=== PATIENT | male | born 1960 | race Caucasian/White ===

== ENCOUNTER 2017-07-25 12:01 | Observation (INO) ==
[2017-07-25 12:55] LABS: Basophils # 0.2 10*3/uL (0.0-0.2); Basophils % 1.3 % (0.0-0.8); Eosinophils # 0.2 10*3/uL (0.0-0.87); Eosinophils % 1.9 % (0.00-10.9); Hematocrit 44.7 VOL% (42.0-52.0); Hemoglobin 15.5 GM/DL (14.0-18.0); Immature Granulocytes % 0.9 %; Immature Granulocytes Absolute 0.11 #; Lymphocytes # 3.6 10*3/uL (1.4-4.0); Lymphocytes % 29.5 % (21.2-54.2); Mean Corpuscular HGB Conc 34.7 GM/DL (32-36); Mean Corpuscular Hemoglobin 30 PG (27-34); Mean Corpuscular Volume 86.3 FL (87-102); Mean Platelet Volume 10.6 FL (9.6-12.0); Monocytes # 0.9 10*3/uL (0.11-0.8); Monocytes % 7.3 % (1.7-12.7); Neutrophils # 7.3 10*3/uL (1.4-7.4); Neutrophils % 59.1 % (38.7-73.9); Platelet Count 278 T/CUMM (130-400); Red Blood Count 5.18 MC/CUMM (3.8-5.5); Red Cell Distribution Width 13.1 % (9.3-17.3); White Blood Count 12.3 T/CUMM (4-12)
[2017-07-25 13:06] LABS: PT Patient Result 10.9 SECS; Partial Thromboplastin Time 27.3 SECS (0-40)
--- NOTE | 2017-07-25 13:09 | Emergency Department Note ---
I, Mala Garcia, am scribing for, and in the presence of, Rubi Gupta DO 12:40. I, Rubi Gupta DO, personally performed the services described in this documentation, ascribed by Mala Garcia in my presence, and it is both accurate and complete . Arrival - Arrival Chief Complaint: Chest Pain Stated Complaint: chest pain,stint put in less than 1yr ago ED Nursing Triage Note: C/O Having chest pain x 1 week., states he is having sharp pains., denies the pain radiating to the neck or the arm., states nothing he notices has helped or made things worse., states he has nitroglycerin but does not take it , states he called office and was told to come to the ED., EKG obtained at time of triage Mode of Arrival: Ambulatory Limitations: No Limitations Source: Patient - History of Present Illness HPI Narrative: Pt is a 57 y/o male who came to ED with c/o chest pain, intermittently for week now. Pt states he has had a heart attack in the 90s with stent and had stent reoccluded 8-[address] Marroquin. Pt notes he currently does not have any chest pains in ED, but does have mild left sided neck tightness. He called Dr. De La Cruz when sxs started today and was told to come to ED. He notes when sxs first started he could sit very still and pain would subside on its own. Pt sees Dr. Garcia and has appointment this afternoon with eye appointment in [place], tomorrow. He reports taking daily medications and has taken his baby aspirin already. NIDDM, HTN and former smoker. Onset (ago): week(s) Consistency: constant Severity: mild, moderate Severity scale (1-10): 4 Quality: other Allergies/Adverse Reactions: Allergies Allergy/AdvReac Type Severity Reaction Status Date / Time No Known Allergies Allergy Verified 07/25/17 12:06 Home Medications: Home Medications Medication Instructions Recorded Confirmed Type Albuterol Sulfate [Ventolin HFA] 2 puff INH Q6H PRN 09/05/16 07/25/17 History Aspirin [Ecotrin] 81 mg PO QAM 09/05/16 07/25/17 History Atorvastatin [Lipitor] 20 mg PO BEDTIME 09/05/16 07/25/17 History Lisinopril/Hydrochlorothiazide 1 each PO QAM 09/05/16 07/25/17 History [Lisinopril-Hctz 20-25 mg Tab] Metformin HCl 1,000 mg PO BID 09/05/16 07/25/17 History Carvedilol [Coreg] 6.25 mg PO BID #60 tablet 09/06/16 07/25/17 Rx Nitroglycerin Sl Tab [Nitrostat] 0.4 mg SL Q5M PRN #30 tablet 09/06/16 07/25/17 Rx Clopidogrel [Plavix] 75 mg PO QAM 07/25/17 07/25/17 History Ipratropium Neb [Atrovent Neb] 500 mcg RESP TX RT Q6H PRN 07/25/17 07/25/17 History Mometasone/Formoterol 200-5 2 puff INH BID 07/25/17 07/25/17 History [Dulera 200-5] Montelukast Tab [Singulair Tab] 10 mg PO QAM 07/25/17 07/25/17 History Review of System - Review of System 12 point system: reviewed and no additional remarkable complaints except as stated - Review of System Constitutional: Absent: chills, diaphoresis, fever Respiratory: Absent: respiratory distress Cardiovascular: Present: chest pain. Absent: syncope Gastrointestinal: Absent: abdominal pain, nausea, vomiting Musculoskeletal: Present: neck pain (left side). Absent: arm pain Skin: Absent: rash Neurological: Absent: headache Psychiatric: Absent: anxiety Medical,Surgical,& Family Hx - Medical History Cardio: History of: Hypertension, [place] Neurology: No history of: Seizures Endocrine: History of: Diabetes Mellitus (NIDDM) Genitourinary: History of: Kidney Stones Musculoskeletal: History of: Back/Neck Problems - Surgical History Cardiac Surgeries: Patient Denies: Cardiac Catheterization Orthopedic Surgeries: Surgical HX of;: Orthopedic Surgery (back surgery x 2, carpal tunnel bilat, elbow surgery) - Family History Family History: Reports;: Family Cancer (brother), Family Diabetes (uncle), Family Heart Disease (father, brother x 3,), Family Hypertension (everybody) Denies;: Family Anesthesia Reaction, Family Psychiatric Problems, Family Stroke - Social History Smoking Status: Former smoker Frequency of Alcohol Use: None Type of Drug Use: None Marital Status: Single Lives With:: Alone Functional capacity: independent ambulation Exam Vital Signs: Vital Signs Temperature 98.1 F 07/25/17 12:02 Pulse Rate 85 07/25/17 13:45 Respiratory Rate 18 07/25/17 13:45 Blood Pressure 109/85 07/25/17 13:45 O2 Sat by Pulse Oximetry 97 07/25/17 13:45 - General General appearance: alert, in no apparent distress, obese (mildly), other ( stoic in appearance) - Head Head exam: Present: atraumatic, normocephalic - Eye Eye exam: Present: PERRL, EOMI - ENT ENT exam: Present: mucous membranes moist. Absent: mucous membranes dry - Neck Neck exam: Present: full ROM - Chest Chest inspection: Present: symmetric chest wall rise - Respiratory Respiratory exam: Present: normal lung sounds bilaterally. Absent: respiratory distress - Cardiovascular Cardiovascular exam: Present: regular rate, normal rhythm, normal heart sounds - Abdominal Exam Abdominal exam: Present: soft, distention (mildly distented). Absent: tenderness - Extremities Exam Extremities exam: Present: full ROM. Absent: pedal edema - Neurological Exam Neurological exam: Present: alert, oriented X3, CN II-XII intact - Psychiatric Psychiatric exam: Present: normal affect, normal mood - Skin Skin exam: Present: warm, dry Course Course Narrative: pt is stable at this time .was accepted by Dr Reyes. Results - Labs CBC & BMP: 07/25/17 12:34 07/25/17 12:34 Lab Results: I have reviewed the patients labs Labs: Laboratory Tests 07/25/17 07/25/17 07/25/17 12:34 12:34 12:34 WBC 12.3 H RBC 5.18 Hgb 15.5 Hct 44.7 MCV 86.3 L Plt Count 278 Baso % (Auto) 1.3 H [place] # (Auto) 0.9 H Sodium 135 L Potassium 4.2 Chloride 102 Carbon Dioxide 25 Creatinine 1.50 H Glucose 128 H Calculated Osmolality 272.1 L Magnesium 1.7 L Total Creatine Kinase 190 CK-MB (CK-2) 1.7 Troponin I 0.040 Globulin 4.4 H Albumin/Globulin Ratio 0.8 L - EKG EKG results: interpreted by JOSE ANGEL, WNL - Diagnostic Findings Procedure: Chest x-ray: report reviewed by me (Chronic lung changes. No acute process or significant change.) Disposition Clinical Impression: Chest pain Case discussed with: patient Disposition: Still a Patient Condition: Stable Time of Disposition: 14:26
--- NOTE | 2017-07-25 13:09 | XRay Report ---
XR chest 2V Indication: Chest pain Comparison: 05 September 2016 Findings: The heart and mediastinum are normal in size and configuration. The pulmonary vascularity is normal in caliber. Lung volumes are increased with prominent bronchial markings. No lung infiltrates, effusions, pneumothorax or other abnormality is demonstrated. Impression: Chronic lung changes. No acute process or significant change. PROCEDURE INTERPRETED AT [facility] DEPARTMENT OF RADIOLOGY Final Report Signed by: Dr. Lonnie Solorzano
[2017-07-25 13:27] LABS: Alanine Aminotransferase 24 U/L (16-61); Albumin 3.7 G/DL (3.4-5.0); Alkaline Phosphatase 54 U/L (45-117); Aspartate Amino Transferase 28 U/L (0-37); Blood Urea Nitrogen 14 MG/DL (7-18); Glucose 128 MG/DL (74-106); Osmolality,Calculated 272.1 MOS/KG (273-304); Potassium 4.2 MMOL/L (3.5-5.1); Sodium 135 MMOL/L (136-145); Total Protein 8.1 G/DL (6.4-8.3)
[2017-07-25] MEDS ORDERED: ONDANSETRON 4 MG/2 ML VIAL IV PRN (14:36)
[2017-07-25] MEDS ORDERED: MAGNESIUM SULF RIDER 2 GM in PREMIX 1 EACH IV PRN (14:36)
[2017-07-25] MEDS ORDERED: MAGNESIUM SULF RIDER 4 GM in PREMIX 1 EACH IV PRN (14:36)
[2017-07-25] MEDS ORDERED: ENOXAPARIN 40 MG/0.4 ML SYRINGE SUBCUT SCH (15:00)
[2017-07-25] MEDS ORDERED: ACETAMINOPHEN 325 MG TABLET PO PRN (15:23)
[2017-07-25] MEDS ORDERED: ZALEPLON 5 MG CAPSULE PO PRN (15:23)
[2017-07-25] MEDS ORDERED: MAGNESIUM HYDROXIDE SUSP 30 ML UDCUP PO PRN (15:23)
[2017-07-25] MEDS ORDERED: POTASSIUM CHLORIDE 20 MEQ TABLET PO PRN ×2 (15:23)
[2017-07-25] MEDS ORDERED: BISACODYL 5 MG TABLET PO PRN (15:23)
[2017-07-25] MEDS ORDERED: INSULIN REGULAR 100 UNIT/ML SUBCUT ONE (15:23)
--- NOTE | 2017-07-25 15:23 | Cardiology History & Physical ---
Assessment and Plan - Time spent with patient Time spent with patient: Greater than 30 minutes (Due to assessment, plan, documentation, and medication review) Time spent discussing smoking cessation with patient: 3 to 10 minutes (1) Chest pain Status: Acute Assessment and plan: See plan of care listed below. Current Visit: Yes (2) Coronary artery disease Status: Chronic Assessment and plan: See plan of care listed below. Current Visit: Yes (3) Hypertension Status: Chronic Assessment and plan: See plan of care listed below. Current Visit: Yes (4) Diabetes mellitus Status: Chronic Assessment and plan: See plan of care listed below. Current Visit: Yes Qualifiers: Diabetes mellitus type: type 2 (5) Dyslipidemia Status: Chronic Assessment and plan: See plan of care listed below. Current Visit: Yes (6) Obesity (BMI 35.0-39.9 without comorbidity) Status: Chronic Assessment and plan: See plan of care listed below. Current Visit: Yes (7) Tobacco use Status: Chronic Assessment and plan: See plan of care listed below. Current Visit: Yes (8) COPD (chronic obstructive pulmonary disease) Status: Chronic Assessment and plan: See plan of care listed below. Current Visit: Yes (9) Sleep disorder Status: Acute Assessment and plan: See plan of care listed below. Current Visit: Yes History of Present Illness Chief complaint: Chest pain History of present illness: Therapist Physical: Dr. Marroquin Mr. Nguyen is a 57 y/o WM with a history of coronary artery disease, hypertension, diabetes, dyslipidemia, obesity, tobacco use, COPD, and prior IN. HE is s/p LAD stenging on 09/05/[address] Marroquin. At that time, his other coronaries were widely patent with EF 60%. He has smoked for 49 years and currently smokes 3/4 PPD. Mr. Nguyen presented to the emergency room today with complaint of chest pains ongoing for the past week and a half. He describes these pains as "sharp like a needle" followed by a dull aching soreness. He reports the sharp pains may last 15 minutes before going away on their own but the dull ache may last up to an hour or longer. He has also had some left neck tightness. These pains are not associated with exertion and tend to occur when he is lying down, particularly on his right side. He denies associated symptoms with the pain although he does have symptoms of chronic shortness of breath that has been worse during the past few weeks. He also reports feeling lightheaded on occasion and fatigued. He states that he does notice some occasional BLE edema. He denies palpitations, headache, dizziness, or syncope. He reports he has felt nauseated upon waking the past few mornings but not necessarily nausea with his chest pain. He does report a history of snoring and reports he has never been checked for sleep apnea. He states he frequently wakes up around 3-4AM but is not awakened by his snoring. He is able to sleep flat and has no PND. He tells me he does not recall having pains like these prior to his IN. Upon arrival, Mr. Nguyen's WBC was 12.3, sodium 135, creatinine 1.5, potassium 4.2, glucose 128, osmolality 272, magnesium 1.7, troponin 0.040, CPK 190, and CKMB 1.7. EKG shows sinus rhythm with no acute ST abnormality. Chest x-ray shows chronic lung changes, no acute process or significant change. Dr. Reyes to follow with further plan and addendum. IMPRESSION/PLAN: - CHEST PAIN: Atypical in nature with currently normal troponin. Will continue to cycle cardiac biomarkers and EKGs and follow trend. Will hold NPO after midnight in anticipation of possible stress test or heart catheterization. Dr. Reyes to follow with further plan and addendum. - CORONARY ARTERY DISEASE: HE is s/p LAD stenging on 09/05/[address] Marroquin. At that time, his other coronaries were widely patent with EF 60%. - HYPERTENSION: Mildly elevated upon admission. Will resume home medications, monitor, and adjust accordingly. - DIABETES: Hold metformin. Will place on accuchecks and sliding scale insulin. - DYSLIPIDEMIA: Continue lipid lowering agent. Will check lipid panel in AM. - OBESITY: Chronic. Encouraged lifestyle modifications with diet and exercise. - TOBACCO USE: Greater than 5 minutes was spent discussing the need for and benefit of tobacco cessation. Will go ahead and place him on a nicotine patch. - COPD: Routinely followed by Dr. Breaux. Currently without wheezing. -SUSPECTED SLEEP DISORDER: Will consult sleep medicine for their evaluation. It 's likely Mr. Nguyen may need sleep study at some point in the future. Home Medications Medication Instructions Recorded Confirmed Type Albuterol Sulfate [Ventolin HFA] 2 puff INH Q6H PRN 09/05/16 07/25/17 History Aspirin [Ecotrin] 81 mg PO QAM 09/05/16 07/25/17 History Atorvastatin [Lipitor] 20 mg PO BEDTIME 09/05/16 07/25/17 History Lisinopril/Hydrochlorothiazide 1 each PO QAM 09/05/16 07/25/17 History [Lisinopril-Hctz 20-25 mg Tab] Metformin HCl 1,000 mg PO BID 09/05/16 07/25/17 History Carvedilol [Coreg] 6.25 mg PO BID #60 tablet 09/06/16 07/25/17 Rx Nitroglycerin Sl Tab [Nitrostat] 0.4 mg SL Q5M PRN #30 tablet 09/06/16 07/25/17 Rx Clopidogrel [Plavix] 75 mg PO QAM 07/25/17 07/25/17 History Ipratropium Neb [Atrovent Neb] 500 mcg RESP TX RT Q6H PRN 07/25/17 07/25/17 History Mometasone/Formoterol 200-5 2 puff INH BID 07/25/17 07/25/17 History [Dulera 200-5] Montelukast Tab [Singulair Tab] 10 mg PO QAM 07/25/17 07/25/17 History Allergies Allergy/AdvReac Type Severity Reaction Status Date / Time No Known Allergies Allergy Verified 07/25/17 12:06 Review of systems: - Constitutional: Present: fatigue, As per HPI. Absent: anorexia, chills, daytime sleepiness, excessive sweating, fever(s), frequent falls, headache(s), increased appetite, lethargy, malaise, night sweats, stops breathing during sleep, weakness, weight gain, weight loss. - EENT Eyes: Present: As per HPI. Absent: blurry vision, diplopia, loss of vision Ears: Present: As per HPI. Absent: decreased hearing, ear discharge, ear pain Nose, mouth and throat: Present: As per HPI. Absent: dysphagia, epistaxis, headache(s), hoarseness, lip swelling, nasal congestion, neck mass, neck pain, sinus pressure, sore throat, throat swelling, tongue swelling, vertigo - Cardiovascular: Present: chest pain at rest, dyspnea, dyspnea on exertion, edema, lightheadedness, as per HPI. Absent: chest pain with activity, claudication, diaphoresis, radiating jaw, neck or arm pain, orthopnea, palpitations, PND - Respiratory: Present: dyspnea, dyspnea on exertion, as per HPI. Absent: cough , hemoptysis, wheezing, snoring, pain on inspiration - Gastrointestinal: Present: As per HPI. Absent: abdominal pain, bloating, change in bowel habits, constipation, diarrhea, heartburn, hematemesis, hematochezia, loose stools, melena, nausea, vomiting - Genitourinary: Present: As per HPI. Absent: difficulty urinating, dysuria, flank pain, hematuria, nocturia, urinary frequency, urinary incontinence - Musculoskeletal: Present: As per HPI. Absent: arthralgias, back pain, joint swelling, limited range of motion, muscle cramps, muscle weakness, myalgias - Neurological: Present: As per HPI. Absent: abnormal gait, abnormal speech, behavioral changes, confusion, convulsions, disequilibrium, dizziness, focal weakness, frequent falls, headache(s), memory loss, numbness, paresthesias, radicular pain, syncope, tremor(s) - Psychiatric: Present: As per HPI. Absent: anxiety, confusion, depression, panic attacks - Endocrine: Present: fatigue, As per HPI. Absent: cold intolerance, heat intolerance, polydipsia, polyphagia - Hematologic/Lymphatic: Present: As per HPI. Absent: easy bleeding, easy bruising, lymphadenopathy Medical,Surgical,& Family Hx - Medical History Cardio: History of: CAD, Hypertension, [place] Neurology: No history of: Seizures Endocrine: History of: Diabetes Mellitus (NIDDM), Dyslipidemia Respiratory: History of: COPD Genitourinary: History of: Kidney Stones Musculoskeletal: History of: Back/Neck Problems - Surgical History Cardiac Surgeries: Sugical HX of: Cardiac Catheterization Orthopedic Surgeries: Surgical HX of;: Orthopedic Surgery (back surgery x 2, carpal tunnel bilat, elbow surgery) - Family History Family History: Reports;: Family Cancer (brother), Family Diabetes (uncle), Family Heart Disease (father, brother x 3,), Family Hypertension (everybody) Denies;: Family Anesthesia Reaction, Family Psychiatric Problems, Family Stroke - Social History Smoking Status: Current every day smoker Have you smoked in the last 12 months: Yes (smokes 3/4 PPD, has smoked x49 years ) Time spent discussing smoking cessation with patient: 3 to 10 minutes Frequency of Alcohol Use: None Type of Drug Use: None Marital Status: Lives With:: Alone Functional capacity: independent ambulation Cardiology Physical Exam - Constitutional Vitals: Vital Signs Temp Pulse Resp BP Pulse Ox 98.1 F 87 18 132/93 95 07/25/17 12:02 07/25/17 14:48 07/25/17 14:48 07/25/17 14:48 07/25/17 14:48 Intake and Output 07/25/17 07/25/17 07/25/17 06:59 14:59 22:59 Other: Weight 300 lb Patient Weight 07/26/17 06:59 Weight 300 lb Exam: General appearance: Appears well. Pleasant and cooperative. Overweight, no acute distress. Head exam: Present: normal inspection, normocephalic, atraumatic. Absent: hematoma, laceration Eye exam: Present: EOMI. Absent: conjunctival injection, nystagmus, periorbital swelling, scleral icterus, laceration to eyelids, jaundice Pupils: Present: PERRL. Absent: constricted, dilated, fixed, irregular, unequal ENT exam: Present: normal exam, normal external ear exam, mucous membranes moist. Neck exam: Present: normal inspection, midline trachea. Absent: masses, lymphadenopathy, tenderness, thyromegaly, carotid bruit Respiratory exam: Present: clear to auscultation bilaterally. Absent: accessory muscle use, chest wall tenderness, rales, rhonchi, wheezing. Cardiovascular exam: Present: regular rate and rhythm. Absent: gallop, JVD, rubs, murmur GI/Abdominal exam: Present: normal bowel sounds, soft. Absent: distended, firm , hernia, mass, tenderness. Extremities exam: Present: Normal Gait, No Clubbing, No Cyanosis, Upper Extr. Pulses 2+, Lower Extr. Pulses 2+, Trace BLE edema. Capillary refill less than 3 seconds. Musculoskeletal: Present: No Fluid Collection, No Pain, Normal Range of Motion Back exam: Present: normal inspection. Absent: muscle spasm, vertebral tenderness Neurological exam: Present: awake, alert, oriented X3, Moves all extremities well without hemiparesis or paralysis. Grossly intact without resting or essential tremor Psychiatric exam: Present: normal affect, normal mood Skin exam: Present: normal color, warm, dry, intact. Absent: cyanosis, diaphoretic, rash, urticaria Result/EKG - Labs CBC & BMP: 07/25/17 12:34 07/25/17 12:34 Lab Results: I have reviewed the past 24 hour labs Labs: Laboratory Results - last 24 hr 07/25/17 07/25/17 07/25/17 12:34 12:34 12:34 WBC 12.3 H RBC 5.18 Hgb 15.5 Hct 44.7 MCV 86.3 L MCH 30 MCHC 34.7 RDW 13.1 Plt Count 278 MPV 10.6 Neut % (Auto) 59.1 Lymph % (Auto) 29.5 [place] % (Auto) 7.3 Eos % (Auto) 1.9 Baso % (Auto) 1.3 H Neut # (Auto) 7.3 Lymph # (Auto) 3.6 [place] # (Auto) 0.9 H Eos # (Auto) 0.2 Baso # (Auto) 0.2 Immature Gran % 0.9 Nucleated RBC % 0.0 Immature Gran # 0.11 Nucleated RBCs # 0.00 Immature Plt Fraction 0.0 INR 1.0 PT Patient/Control Mix 10.9 Circ Anticoag PTT 27.3 Sodium Potassium Chloride Carbon Dioxide Anion Gap BUN Creatinine GFR Calculation BUN/Creatinine Ratio Glucose Calculated Osmolality Calcium Magnesium 1.7 L Total Bilirubin AST ALT Alkaline Phosphatase Total Creatine Kinase CK-MB (CK-2) Troponin I Total Protein Albumin Globulin Albumin/Globulin Ratio 07/25/17 12:34 WBC RBC Hgb Hct MCV MCH MCHC RDW Plt Count MPV Neut % (Auto) Lymph % (Auto) [place] % (Auto) Eos % (Auto) Baso % (Auto) Neut # (Auto) Lymph # (Auto) [place] # (Auto) Eos # (Auto) Baso # (Auto) Immature Gran % Nucleated RBC % Immature Gran # Nucleated RBCs # Immature Plt Fraction INR PT Patient/Control Mix Circ Anticoag PTT Sodium 135 L Potassium 4.2 Chloride 102 Carbon Dioxide 25 Anion Gap 12.2 BUN 14 Creatinine 1.50 H GFR Calculation 79 BUN/Creatinine Ratio 9.00 Glucose 128 H Calculated Osmolality 272.1 L Calcium 9.0 Magnesium Total Bilirubin 0.60 AST 28 ALT 24 Alkaline Phosphatase 54 Total Creatine Kinase 190 CK-MB (CK-2) 1.7 Troponin I 0.040 Total Protein 8.1 Albumin 3.7 Globulin 4.4 H Albumin/Globulin Ratio 0.8 L - EKG EKG results: interpreted by me, sinus rhythm
[2017-07-25] MEDS ORDERED: NITROGLYCERIN SL 0.4 MG TABLET SL PRN (15:38)
[2017-07-25] MEDS ORDERED: IPRATROPIUM 500 MCG/2.5 ML NEB RESP TX PRN (15:38)
[2017-07-25] MEDS ORDERED: hydrALAZINE 20 MG/1 ML VIAL IV PRN (15:42)
[2017-07-25] MEDS: NICOTINE 21 MG/24 HR PATCH TRANSDERM SCH (17:33)
--- NOTE | 2017-07-25 18:14 | Order Completion Report ---
See report scanned to EMR
[2017-07-25 18:38] LABS: Troponin I Only 0.039 NG/ML (0.00-0.045)
[2017-07-25] MEDS ORDERED: ALBUTEROL 2.5 MG/3 ML NEB RESP TX PRN (19:00)
[2017-07-25] MEDS ORDERED: ATORVASTATIN 20 MG TABLET PO SCH (21:00)
[2017-07-25] MEDS: MOMETASONE/FORMOTEROL 200-5 INHALER 8.8 GM INH SCH (21:10)
[2017-07-25] MEDS: INSULIN REGULAR 100 UNIT/ML SUBCUT SCH (21:10)
[2017-07-25] MEDS: CARVEDILOL 6.25 MG TABLET PO SCH (21:10)
[2017-07-26 02:16] LABS: Basophils # 0.1 10*3/uL (0.0-0.2); Eosinophils # 0.3 10*3/uL (0.0-0.87); Eosinophils % 2.5 % (0.00-10.9); Hematocrit 42.5 VOL% (42.0-52.0); Immature Granulocytes Absolute 0.12 #; Lymphocytes # 4.3 10*3/uL (1.4-4.0); Lymphocytes % 33.9 % (21.2-54.2); Mean Corpuscular HGB Conc 32.9 GM/DL (32-36); Mean Corpuscular Hemoglobin 29 PG (27-34); Mean Corpuscular Volume 88.9 FL (87-102); Mean Platelet Volume 10.3 FL (9.6-12.0); Monocytes # 1.1 10*3/uL (0.11-0.8); Monocytes % 8.6 % (1.7-12.7); Neutrophils # 6.7 10*3/uL (1.4-7.4); Platelet Count 259 T/CUMM (130-400); Red Blood Count 4.78 MC/CUMM (3.8-5.5); Red Cell Distribution Width 13.1 % (9.3-17.3); White Blood Count 12.6 T/CUMM (4-12)
[2017-07-26 02:49] LABS: Calcium 8.9 MG/DL (8.5-10.1); Magnesium 1.9 MG/DL (1.8-2.4); Osmolality,Calculated 278.8 MOS/KG (273-304); Potassium 3.8 MMOL/L (3.5-5.1); Risk Ratio 3.31; VLDL CHOLESTEROL 26.8 MG/DL
[2017-07-26 02:52] LABS: Troponin I Only 0.047 NG/ML (0.00-0.045)
[2017-07-26 06:41] LABS: Troponin I Only 0.043 NG/ML (0.00-0.045)
--- NOTE | 2017-07-26 07:25 | Order Completion Report ---
See report scanned to EMR
[2017-07-26] MEDS: INSULIN REGULAR 100 UNIT/ML SUBCUT SCH ×2 (08:25→12:55)
[2017-07-26] MEDS ORDERED: ASPIRIN EC 81 MG TABLET PO SCH (09:00)
[2017-07-26] MEDS ORDERED: LISINOPRIL/HCTZ 20-25 MG TABLET PO SCH (09:00)
[2017-07-26] MEDS ORDERED: MONTELUKAST 10 MG TABLET PO SCH (09:00)
[2017-07-26] MEDS ORDERED: CLOPIDOGREL 75 MG TABLET PO SCH (09:00)
--- NOTE | 2017-07-26 10:09 | Ultrasound Report ---
History: Chest pain. Elevated d-dimer Date: 07/26/2017 Study: Bilateral lower extremity color-flow venous Doppler study Comparison exam: No previous similar Color Doppler, wave form analysis, and compression analysis of the deep veins of both lower extremities from the common femoral vein level through the popliteal vein level shows that the veins are readily compressible. There is no abnormal intraluminal material to suggest thrombus. Waveform analysis is unremarkable. Ultrasound images were captured and archived Impression: No evidence of acute DVT PROCEDURE INTERPRETED AT [facility] DEPARTMENT OF RADIOLOGY Final Report Signed by: Dr. Whitney Pringle
[2017-07-26] MEDS: NICOTINE 21 MG/24 HR PATCH TRANSDERM SCH (10:42)
[2017-07-26] MEDS: CARVEDILOL 6.25 MG TABLET PO SCH (10:44)
[2017-07-26] MEDS: MOMETASONE/FORMOTEROL 200-5 INHALER 8.8 GM INH SCH (10:45)
--- NOTE | 2017-07-26 10:45 | Discharge Summary ---
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 Nguyen is a 57 y/o WM with a history of coronary artery disease, hypertension, diabetes, dyslipidemia, obesity, tobacco use, COPD, and prior NM. HE is s/p LAD stenting on 09/05/[address] Marroquin. At that time, his other coronaries were widely patent with EF 60%. He has smoked for 49 years and currently smokes 3/4 PPD. Mr. Nguyen presented to [facility] July 25, 2017 with atypical chest pain. No evidence of ACS. Patient was ruled out for myocardial infarction with negative cardiac biomarkers. No significant EKG changes noted. PE was ruled out with negative d-dimer. Patient did have recent bilateral lower extremity swelling. Venous ultrasound was completed and did not reveal any evidence of DVT. Echocardiogram was performed and revealed preserved ejection fraction 55-60%. Grade 1 diastolic dysfunction. Mild LVH. Trace TR. Patient's chest pain is more suggestive of GI etiology. Patient will be discharged home with PPI and Maalox PRN. He will follow up with his primary clinical technologist Dr. Marroquin in to 3 weeks. If he continues to have atypical chest pain, this may warrant further outpatient workup. Patient is anxious for discharge home. Having felt that he has not maximal medical therapy, he will be discharged home in stable condition. He will be discharged home with his preadmission medications with addition of PPI. Spent greater than 5 minutes discussing the merits of tobacco cessation. He does have symptoms concerning for sleep apnea. He will be given an appointment to follow-up with Dr. Olivera for outpatient evaluation. Patient verbalizes understanding of discharge instructions and discharge medications. - Time spent with patient Time with patient DS: Greater than 30 minutes Diagnosis - Discharge Diagnosis (1) Atypical chest pain Status: Resolved (2) Unspecified sleep apnea Status: Chronic (3) COPD (chronic obstructive pulmonary disease) Status: Chronic (4) Coronary artery disease Status: Chronic (5) Diabetes mellitus Status: Chronic (6) Dyslipidemia Status: Chronic (7) Hypertension Status: Chronic (8) Obesity (BMI 35.0-39.9 without comorbidity) Status: Chronic (9) Tobacco use Status: Chronic Specialty Discharge - Follow Up or Referrals Follow up with: Charo Olivera MD [Physician] - (Outpatient sleep evaluation.) Adithya Marroquin MD [Physician] - (2-3 WEEKS WITH EKG) Discharge Plan - Discharge Data Disposition: Disch To Home/Self Care Condition at Discharge: Stable Discharge Diet: heart healthy, low fat, low cholesterol, low salt diet Activity: resume usual activities as tolerated Hygiene: no restrictions Weight Bearing at Discharge: full weight bearing Driving: no restrictions Contact your physician if you experience:: fever over 101, Difficulty voiding, Redness or swelling, Nausea/Vomiting, Shortness of breath, Bleeding, pain uncontrolled by pain medications - Discharge Medications New Pantoprazole Tab [Protonix Tab] 40 mg PO DAILY #30 tablet Alum/Mag/Simeth Max Str Liquid [Mylanta Max Strength Liquid] 30 ml PO Q6H # 15 udcup Continue Albuterol Sulfate [Ventolin HFA] 2 puff INH Q6H PRN PRN Reason: Shortness Of Breath/Wheezing Metformin HCl 1,000 mg PO BID Lisinopril/Hydrochlorothiazide [Lisinopril-Hctz 20-25 mg Tab] 1 each PO QAM Atorvastatin [Lipitor] 20 mg PO BEDTIME Aspirin [Ecotrin] 81 mg PO QAM Carvedilol [Coreg] 6.25 mg PO BID #60 tablet Nitroglycerin Sl Tab [Nitrostat] 0.4 mg SL Q5M PRN #30 tablet PRN Reason: Chest Pain Mometasone/Formoterol 200-5 [Dulera 200-5] 2 puff INH BID Clopidogrel [Plavix] 75 mg PO QAM Montelukast Tab [Singulair Tab] 10 mg PO QAM Ipratropium Neb [Atrovent Neb] 500 mcg RESP TX RT Q6H PRN PRN Reason: Shortness Of Breath/Wheezing - Follow Up or Referral Follow Up: Adithya Marroquin MD [Physician] - 1 Month (EKG) Charo Olivera MD [Physician] - (Outpatient sleep evaluation.) - Forms/Instructions Instructions: Coronary Artery Disease (GEN), How to Stop Smoking (GEN), Heart Healthy Diet (GEN), Cigarette Smoking and Your Health (GEN) Exam - Constitutional Vitals: Period Temp Pulse Resp BP Sys/Moyer Pulse Ox Last 24 Hr 96.1 F-98.1 F 69-104 14-20 94-134/48-94 90-97 Exam: General appearance: Appears well. Pleasant and cooperative. Overweight, no acute distress. Head exam: Present: normal inspection, normocephalic, atraumatic. Absent: hematoma, laceration Eye exam: Present: EOMI. Absent: conjunctival injection, nystagmus, periorbital swelling, scleral icterus, laceration to eyelids, jaundice Pupils: Present: PERRL. Absent: constricted, dilated, fixed, irregular, unequal ENT exam: Present: normal exam, normal external ear exam, mucous membranes moist. Neck exam: Present: normal inspection, midline trachea. Absent: masses, lymphadenopathy, tenderness, thyromegaly, carotid bruit Respiratory exam: Present: clear to auscultation bilaterally. Absent: accessory muscle use, chest wall tenderness, rales, rhonchi, wheezing. Cardiovascular exam: Present: regular rate and rhythm. Absent: gallop, JVD, rubs, murmur GI/Abdominal exam: Present: normal bowel sounds, soft. Absent: distended, firm , hernia, mass, tenderness. Extremities exam: Present: Normal Gait, No Clubbing, No Cyanosis, Upper Extr. Pulses 2+, Lower Extr. Pulses 2+, Trace BLE edema. Capillary refill less than 3 seconds. Musculoskeletal: Present: No Fluid Collection, No Pain, Normal Range of Motion Back exam: Present: normal inspection. Absent: muscle spasm, vertebral tenderness Neurological exam: Present: awake, alert, oriented X3, Moves all extremities well without hemiparesis or paralysis. Grossly intact without resting or essential tremor Psychiatric exam: Present: normal affect, normal mood Skin exam: Present: normal color, warm, dry, intact. Absent: cyanosis, diaphoretic, rash, urticaria Discharge Results Procedures and tests throughout hospitalization: Pending Orders 07/27/17 04:00 Basic Metabolic Panel IN AM Comp Blood Count Auto Diff IN AM Magnesium IN AM 07/28/17 04:00 Basic Metabolic Panel IN AM Comp Blood Count Auto Diff IN AM Magnesium IN AM 07/29/17 04:00 Basic Metabolic Panel IN AM Comp Blood Count Auto Diff IN AM Magnesium IN AM Labs on day of discharge: Labs from last 24 hours 07/26/17 07/26/17 07/26/17 08:16 06:04 02:08 WBC RBC Hgb Hct MCV MCH MCHC RDW Plt Count MPV Neut % (Auto) Lymph % (Auto) Towns % (Auto) Eos % (Auto) Baso % (Auto) Neut # (Auto) Lymph # (Auto) Towns # (Auto) Eos # (Auto) Baso # (Auto) Immature Gran % Nucleated RBC % Immature Gran # Nucleated RBCs # Immature Plt Fraction INR PT Patient/Control Mix D-Dimer, Quantitative Circ Anticoag PTT Sodium 137 Potassium 3.8 Chloride 101 Carbon Dioxide 30 Anion Gap 9.8 BUN 21 H Creatinine 1.30 GFR Calculation 95 BUN/Creatinine Ratio 16.00 Glucose 154 H POC Glucose 147 H Calculated Osmolality 278.8 Calcium 8.9 Magnesium 1.9 Total Bilirubin AST ALT Alkaline Phosphatase Total Creatine Kinase 124 CK-MB (CK-2) 1.5 Troponin I 0.043 Total Protein Albumin Globulin Albumin/Globulin Ratio Triglycerides 134 Cholesterol 96 LDL Cholesterol 52.0 VLDL Cholesterol 26.8 HDL Cholesterol 29 L Heart Disease Risk Ratio 3.31 07/26/17 07/26/17 07/25/17 02:08 02:08 19:57 WBC 12.6 H RBC 4.78 Hgb 14.0 Hct 42.5 MCV 88.9 MCH 29 MCHC 32.9 RDW 13.1 Plt Count 259 MPV 10.3 Neut % (Auto) 53.0 Lymph % (Auto) 33.9 Towns % (Auto) 8.6 Eos % (Auto) 2.5 Baso % (Auto) 1.0 H Neut # (Auto) 6.7 Lymph # (Auto) 4.3 H Towns # (Auto) 1.1 H Eos # (Auto) 0.3 Baso # (Auto) 0.1 Immature Gran % 1.0 Nucleated RBC % 0.0 Immature Gran # 0.12 Nucleated RBCs # 0.00 Immature Plt Fraction 0.0 INR PT Patient/Control Mix D-Dimer, Quantitative Circ Anticoag PTT Sodium Potassium Chloride Carbon Dioxide Anion Gap BUN Creatinine GFR Calculation BUN/Creatinine Ratio Glucose POC Glucose 184 H Calculated Osmolality Calcium Magnesium Total Bilirubin AST ALT Alkaline Phosphatase Total Creatine Kinase 130 D CK-MB (CK-2) 1.4 Troponin I 0.047 H D Total Protein Albumin Globulin Albumin/Globulin Ratio Triglycerides Cholesterol LDL Cholesterol VLDL Cholesterol HDL Cholesterol Heart Disease Risk Ratio 07/25/17 07/25/17 07/25/17 17:34 17:32 12:34 WBC RBC Hgb Hct MCV MCH MCHC RDW Plt Count MPV Neut % (Auto) Lymph % (Auto) Towns % (Auto) Eos % (Auto) Baso % (Auto) Neut # (Auto) Lymph # (Auto) Towns # (Auto) Eos # (Auto) Baso # (Auto) Immature Gran % Nucleated RBC % Immature Gran # Nucleated RBCs # Immature Plt Fraction INR PT Patient/Control Mix D-Dimer, Quantitative 0.8 Circ Anticoag PTT Sodium Potassium Chloride Carbon Dioxide Anion Gap BUN Creatinine GFR Calculation BUN/Creatinine Ratio Glucose POC Glucose 147 H Calculated Osmolality Calcium Magnesium Total Bilirubin AST ALT Alkaline Phosphatase Total Creatine Kinase 172 CK-MB (CK-2) 1.8 Troponin I 0.039 Total Protein Albumin Globulin Albumin/Globulin Ratio Triglycerides Cholesterol LDL Cholesterol VLDL Cholesterol HDL Cholesterol Heart Disease Risk Ratio 07/25/17 07/25/17 07/25/17 12:34 12:34 12:34 WBC 12.3 H RBC 5.18 Hgb 15.5 Hct 44.7 MCV 86.3 L MCH 30 MCHC 34.7 RDW 13.1 Plt Count 278 MPV 10.6 Neut % (Auto) 59.1 Lymph % (Auto) 29.5 Towns % (Auto) 7.3 Eos % (Auto) 1.9 Baso % (Auto) 1.3 H Neut # (Auto) 7.3 Lymph # (Auto) 3.6 Towns # (Auto) 0.9 H Eos # (Auto) 0.2 Baso # (Auto) 0.2 Immature Gran % 0.9 Nucleated RBC % 0.0 Immature Gran # 0.11 Nucleated RBCs # 0.00 Immature Plt Fraction 0.0 INR 1.0 PT Patient/Control Mix 10.9 D-Dimer, Quantitative Circ Anticoag PTT 27.3 Sodium 135 L Potassium 4.2 Chloride 102 Carbon Dioxide 25 Anion Gap 12.2 BUN 14 Creatinine 1.50 H GFR Calculation 79 BUN/Creatinine Ratio 9.00 Glucose 128 H POC Glucose Calculated Osmolality 272.1 L Calcium 9.0 Magnesium Total Bilirubin 0.60 AST 28 ALT 24 Alkaline Phosphatase 54 Total Creatine Kinase 190 CK-MB (CK-2) 1.7 Troponin I 0.040 Total Protein 8.1 Albumin 3.7 Globulin 4.4 H Albumin/Globulin Ratio 0.8 L Triglycerides Cholesterol LDL Cholesterol VLDL Cholesterol HDL Cholesterol Heart Disease Risk Ratio 07/25/17 12:34 WBC RBC Hgb Hct MCV MCH MCHC RDW Plt Count MPV Neut % (Auto) Lymph % (Auto) Towns % (Auto) Eos % (Auto) Baso % (Auto) Neut # (Auto) Lymph # (Auto) Towns # (Auto) Eos # (Auto) Baso # (Auto) Immature Gran % Nucleated RBC % Immature Gran # Nucleated RBCs # Immature Plt Fraction INR PT Patient/Control Mix D-Dimer, Quantitative Circ Anticoag PTT Sodium Potassium Chloride Carbon Dioxide Anion Gap BUN Creatinine GFR Calculation BUN/Creatinine Ratio Glucose POC Glucose Calculated Osmolality Calcium Magnesium 1.7 L Total Bilirubin AST ALT Alkaline Phosphatase Total Creatine Kinase CK-MB (CK-2) Troponin I Total Protein Albumin Globulin Albumin/Globulin Ratio Triglycerides Cholesterol LDL Cholesterol VLDL Cholesterol HDL Cholesterol Heart Disease Risk Ratio - Imaging and Cardiology Procedure: Chest x-ray: report reviewed by me, Ultrasound: report reviewed by me DS: Provider Date of admission: 07/25/17 14:36 Primary care physician: . No PCP Attending physician on admission: Adithya Marroquin MD Consults: 07/25/17 15:24 Consult to Cardiac Rehabilitation [CONS] Routine Reason for Cardiac Rehabilitation: Risk Factor Modification Other Consult Comment: Evaluate and recommend Discharging clinician: Marilyn Peacock NP Expected date of discharge: 07/26/17
[2017-07-26 12:23] VITALS: BP 125/69
--- NOTE | 2017-07-28 19:41 | Order Completion Report ---
See report scanned to EMR
== END 2017-07-26 13:03 | disposition home or self-care (01) ==
LOC: N.EDINP 12:01 → N.ED 12:01 → N.TELEN 16:58
PROVIDERS: ADMIT Internal Medicine Cardiovascular Disease; ATTEND Internal Medicine Cardiovascular Disease